=== PATIENT | male | born 1955 | race African-American/Black ===

== ENCOUNTER 2023-12-23 13:45 | Inpatient (IN) | payer MEDICARE, MEDICAID ==
[~2023-12-23] VITALS: Ht 185.4 cm; Wt 99.9 kg
[2023-12-23 13:47] VITALS: O2SAT 100
[2023-12-23 14:53] LABS: BASOPHILS % 0.7 % (0.0-2.0); DIFFERENTIAL COMMENT 0; HEMATOCRIT. 40.7 % (42.0-52.0); HEMOGLOBIN. 12.8 g/dL (14.0-18.0); LYMPHOCYTES % 22.7 % (20.0-50.0); MEAN CORPUSCULAR HEMOGLOBIN 31.4 pg (28.0-32.0); MEAN CORPUSCULAR HGB CONC 31.6 g/dL (31.0-37.0); MEAN CORPUSCULAR VOLUME 99.4 fL (80.0-94.0); MEAN PLATELET VOLUME 8.8 fl (7.4-10.4); MONOCYTES % 9.8 % (2.0-8.0); NEUTROPHILS % 65.8 % (40.0-76.0); PLATELET 245 x1000/uL (130-400); RED BLOOD CELL COUNT 4.09 mill/uL (4.7-6.1); RED CELL DISTRIBUTION WIDTH 16.8 % (11.6-14.6); WHITE BLOOD COUNT 6.7 x1000/uL (4.5-11.0)
[2023-12-23 14:56] LABS: CHLORIDE 107 mEq/L (98-107); POTASSIUM 4.5 mEq/L (3.5-5.1); SODIUM 138 mEq/L (136-145)
[2023-12-23 14:57] LABS: CALCIUM 9.2 mg/dL (8.7-10.4); CARBON DIOXIDE 22 mEq/L (21-32)
[2023-12-23 15:02] LABS: CREATININE 1.2 mg/dL (0.6-1.3); GLUCOSE 101 mg/dL (70-105); UREA NITROGEN BLOOD 12 mg/dL (9-23)
[2023-12-23 15:03] LABS: INR 1.1; PARTIAL THROMBOPLASTIN TIME 27.9 sec (23.4-31.0); PROTHROMBIN TIME 12.4 sec (9.6-11.0)
[2023-12-23 15:04] LABS: ALANINE AMINOTRANSFERASE 21 IU/L (10-49); ALBUMIN 4.2 g/dL (3.2-4.8); ASPARTATE AMINOTRANSFERASE 39 IU/L (<34); BILIRUBIN TOTAL 1.3 mg/dL (0.1-1.0); LACTIC ACID 3.2 mmol/L (0.4-2.0); PHOSPHORUS 3.7 mg/dL (2.5-4.9); PROTEIN TOTAL 8.3 g/dL (6.0-8.3)
[2023-12-23 15:09] LABS: TROPONIN I HIGH SENSITIVITY 314 ng/L (3.0-53)
[2023-12-23] MEDS: FUROSEMIDE 40MG/4ML VIAL IV ONE (15:34)
[2023-12-23] MEDS: PIPERACILLIN/TAZO 3.375G/50ML 50 ML IV ONE (15:39)
[2023-12-23] MEDS: CLOPIDOGREL 75MG TABLET PO ONE (15:42)
[2023-12-23] MEDS: NITROGLYCERIN OINT 1GM/INCH UDPKT TD ONE (15:43)
[2023-12-23] MEDS: VANCOMYCIN 1G PREMIX 200 ML IV ONE (15:49)
[2023-12-23] MEDS: ENOXAPARIN 100MG/ML SYR SUBCUT ONE (16:07)
[2023-12-23] MEDS ORDERED: CLONIDINE 0.1MG TABLET PO PRN (17:00)
[2023-12-23] MEDS ORDERED: GUAIFENESIN 200MG/10ML SUGAR FREE UDC PO PRN (17:00)
[2023-12-23] MEDS ORDERED: ONDANSETRON HCL 4MG/2ML INJ IV PRN (17:00)
[2023-12-23] MEDS ORDERED: ACETAMINOPHEN 325MG TABLET PO PRN ×2 (17:00)
[2023-12-23] MEDS ORDERED: LORAZEPAM 0.5MG TABLET PO PRN (17:00)
[2023-12-23] MEDS: ENOXAPARIN 40MG/0.4ML SYR SUBCUT SCH (17:00)
[2023-12-23] MEDS ORDERED: DOCUSATE SODIUM 100MG CAPSULE PO PRN (17:00)
[2023-12-23] MEDS ORDERED: IPRATROPIUM/ALBUTEROL 0.5-3(2.5)MG/3ML NEB HHN PRN (17:00)
[2023-12-23 18:04] LABS: IRON 63 ug/dL (65-175)
[2023-12-23 18:05] LABS: TRIGLYCERIDE 63 mg/dL (0-150)
[2023-12-23 18:06] LABS: LDL CHOLESTEROL 70 mg/dL (5-100)
[2023-12-23 18:07] LABS: CHOLESTEROL 113 mg/dL (<200); HDL CHOLESTEROL 36 mg/dL (>55); TOTAL IRON BINDING CAPACITY 305 ug/dl (250-425)
[2023-12-23 18:09] LABS: T4 FREE 1.39 ng/dL (0.89-1.76)
[2023-12-23 18:10] LABS: THYROID STIMULATING HORMONE 3.62 uIU/mL (0.55-4.78)
[2023-12-23 19:00] LABS: CLARITY URINE CLEAR (CLEAR); COLOR URINE YELLOW (YELLOW); GLUCOSE URINE NEGATIVE (NEGATIVE); KETONES URINE NEGATIVE (NEGATIVE); LEUKOCYTE ESTERASE URINE 1+ (NEGATIVE); NITRITE URINE NEGATIVE (NEGATIVE); OCCULT BLOOD URINE NEGATIVE (NEGATIVE); PROTEIN URINE NEGATIVE (NEGATIVE); SPECIFIC GRAVITY URINE 1.007 (1.005-1.030); UROBILINOGEN URINE 0.2 E.U./dL (0.2-1.0)
[2023-12-23 19:24] LABS: *AMPHETAMINES SCREEN URINE NEGATIVE (NEGATIVE); *BARBITURATES SCREEN URINE NEGATIVE (NEGATIVE); *BENZODIAZEPINES SCREEN URINE NEGATIVE (NEGATIVE); *COCAINE SCREEN URINE PRESUMPTIVE POSITIVE (NEGATIVE)
[2023-12-23 19:25] LABS: CANNABINOID URINE SCREEN NEGATIVE (NEGATIVE); ECSTASY MDMA SCREEN URINE NEGATIVE (NEGATIVE); METHADONE URINE SCREEN NEGATIVE (NEGATIVE); OPIATES URINE SCREEN NEGATIVE (NEGATIVE); PHENCYCLIDINE URINE SCREEN NEGATIVE (NEGATIVE)
[2023-12-23 19:46] LABS: BACTERIA URINE TRACE; RBC URINE 0-2 /hpf (0-2); SQUAMOUS EPITHELIAL CELL URINE NONE SEEN /lpf (RARE/1+); WBC URINE 0-2 /hpf (0-2)
[2023-12-23 19:54] LABS: VITAMIN B12 SERUM 269 pg/mL (211-911)
[2023-12-23] MEDS: FAMOTIDINE 20MG TABLET PO SCH (21:39)
[2023-12-23] MEDS: FUROSEMIDE 40MG/4ML VIAL IVP SCH (21:39)
[2023-12-23] MEDS: PIPERACILLIN/TAZO 3.375G/50ML 50 ML IV SCH (21:39)
[2023-12-24 03:30] LABS: CREATINE KINASE MB FRACTION 1.7 ng/mL (0.5-3.6)
[2023-12-24 06:07] LABS: HEMATOCRIT 36.1 % (42.0-52.0); HEMOGLOBIN 11.5 g/dL (14.0-18.0); MEAN CORPUSCULAR HEMOGLOBIN 30.9 pg (28.0-32.0); MEAN CORPUSCULAR HGB CONC 31.9 g/dL (31.0-37.0); MEAN CORPUSCULAR VOLUME 96.8 fL (80.0-94.0); PLATELET 252 x1000/uL (130-400); RED BLOOD CELL COUNT 3.73 mill/uL (4.7-6.1); RED CELL DISTRIBUTION WIDTH 16.6 % (11.6-14.6); WHITE BLOOD COUNT 5.8 x1000/uL (4.5-11.0)
[2023-12-24 06:09] LABS: CARBON DIOXIDE 28 mEq/L (21-32); CHLORIDE 106 mEq/L (98-107); POTASSIUM 4.5 mEq/L (3.5-5.1); SODIUM 139 mEq/L (136-145)
[2023-12-24 06:13] LABS: CREATINE KINASE MB FRACTION 1.2 ng/mL (0.5-3.6)
[2023-12-24 06:14] LABS: CREATININE 1.2 mg/dL (0.6-1.3)
[2023-12-24 06:15] LABS: GLUCOSE 87 mg/dL (70-105); UREA NITROGEN BLOOD 15 mg/dL (9-23)
[2023-12-24 06:17] LABS: CREATINE KINASE 56 IU/L (46-171); PHOSPHORUS 3.6 mg/dL (2.5-4.9)
[2023-12-24 06:20] LABS: TROPONIN I HIGH SENSITIVITY 288 ng/L (3.0-53)
[2023-12-24] MEDS ORDERED: VANCOMYCIN 1.25GM/250ML 250 ML IV SCH ×2 (08:00→08:30)
[2023-12-24] MEDS: FAMOTIDINE 20MG TABLET PO SCH (09:18)
[2023-12-24 10:30] VITALS: BP 130/86; PULSE 123; RESP 18; TEMP 37.05852; O2SAT 97
[2023-12-24 11:00] VITALS: BP 138/78; PULSE 88; RESP 22; TEMP 36.9184
[2023-12-24 12:00] VITALS: BP 118/78; PULSE 126; RESP 18; TEMP 36.89184; O2SAT 96
[2023-12-24] MEDS: VANCOMYCIN 750MG PREMIX 150 ML IV SCH (12:21)
[2023-12-24 16:00] VITALS: BP 115/84; PULSE 124; PULSE 127; RESP 16; RESP 18; TEMP 36.72516; O2SAT 96; O2SAT 97
[2023-12-24] MEDS: ENOXAPARIN 40MG/0.4ML SYR SUBCUT SCH (16:00)
[2023-12-24] MEDS ORDERED: LORAZEPAM 0.5MG TABLET PO NR (16:24)
[2023-12-24] MEDS ORDERED: FURO-152 MT (17:29)
== END 2023-12-24 20:18 | disposition left against medical advice (07) | DRG 871 ==
LOC: ER 14:18 → 5WST 16:10 → EDBEDREQ 16:15 → EDBEDREQTM 16:15 → 7WST 12-24 10:32
PROVIDERS: ADMIT Internal Medicine; ATTEND Internal Medicine
DX: A41.9 Sepsis, unspecified organism (principal); I21.4 Non-ST elevation (NSTEMI) myocardial infarction; I50.23 Acute on chronic systolic (congestive) heart failure; J96.01 Acute respiratory failure with hypoxia; R17 Unspecified jaundice; L03.116 Cellulitis of left lower limb; L03.115 Cellulitis of right lower limb; L97.929 Non-pressure chronic ulcer of unspecified part of left lower leg with unspecified severity; L97.919 Non-pressure chronic ulcer of unspecified part of right lower leg with unspecified severity; E11.621 Type 2 diabetes mellitus with foot ulcer; R65.20 Severe sepsis without septic shock; I11.0 Hypertensive heart disease with heart failure; D64.9 Anemia, unspecified; I87.2 Venous insufficiency (chronic) (peripheral); F10.10 Alcohol abuse, uncomplicated; F14.10 Cocaine abuse, uncomplicated; F17.210 Nicotine dependence, cigarettes, uncomplicated; I87.8 Other specified disorders of veins; Z79.82 Long term (current) use of aspirin; Z88.6 Allergy status to analgesic agent; Z91.148 Patient's other noncompliance with medication regimen for other reason; Z53.29 Procedure and treatment not carried out because of patient's decision for other reasons
CPT/HCPCS: 36415; 71045; 80048; 80053; 80061; 80305; 81003; 82550; 82553; 82607; 82746; 83036; 83540; 83550; 83605; 83735; 83880; 84100; 84145; 84439; 84443; 84484; 85025; 85027; 93005; 93922; 99291; J1650; J1940; J2543; J3370